=== PATIENT | male | born 1955 | race Caucasian/White ===

== ENCOUNTER 2020-04-26 15:42 | Emergency (ER) | payer OTHER ==
[2020-04-26 15:51] VITALS: TEMP 98.4
--- NOTE | 2020-04-26 16:11 | ED ---
General Adult HPI - General Chief complaint: Dizziness Stated complaint: Lightheaded,Dizziness Time Seen by Provider: 04/26/20 16:00 Source: patient Mode of arrival: ambulatory Limitations: no limitations - History of Present Illness Initial comments: Dictation was produced using [employer] dictation software. please excuse any grammatical, word or spelling errors. This patient was cared for during a federal and state declared state of emergency secondary to Covid 19 Chief Complaint: 64-year-old male presents with dizziness History of Present Illness: Is 64-year-old male he is, in by his family member. Patient states that he had 2 such episodes where he get dizzy and feeling faint. He adamantly reports that this only happens whenever there is mention of gross topics or gross situations. He was diagnosed doctor about a pad surgery when they started talking about things that patient found relatively discussing. He then felt a little faint and fell member at bedside reports that he lost all his color. Sat found her after several seconds he went back to baseline. Patient denies any other issues. He denies any chest pain shortness of breath. He does not have any orthostasis. Strongly feels that he does not need to be here. Family member made him come to be evaluated. The ROS documented in this emergency department record has been reviewed and confirmed by me. Those systems with pertinent positive or negative responses have been documented in the HPI. All other systems are other negative and/or noncontributory. PHYSICAL EXAM: General Impression: Alert and oriented x3, not in acute distress HEENT: Normocephalic atraumatic, extra-ocular movements intact, pupils equal and reactive to light bilaterally, mucous membranes moist, no carotid bruit Cardiovascular: Heart regular rate and rhythm Chest: Able to complete full sentences, no retractions, no tachypnea Abdomen: abdomen soft, non-tender, non-distended, no organomegaly Musculoskeletal: Pulses present and equal in all extremities, no peripheral fercho ma Motor: no focal deficits noted Neurological: CN II-XII grossly intact, no focal motor or sensory deficits noted Skin: Intact with no visualized rashes Psych: Normal affect and mood ED course: 64-year-old presents with episodes of dizziness. Patient this allegedly occurs only whenever things that gross him out are discussed. He has no other complaints at this time. He feels at baseline currently. EKG is unremarkable. Laboratory evaluation is unremarkable. Patient will be discharge. Told to follow up with primary care physician for outpatient workup. EKG interpretation: Ventricular rate 72, normal sinus rhythm,. 184, incomplete right bundle branch block, QRS 110, QTc 47. No MS prolongation, no QTC prolongation, T-wave inversion in lead 3. No old EKG for comparison Overall, this EKG is nonspecific - Related Data Allergies Allergy/AdvReac Type Severity Reaction Status Date / Time No Known Allergies Allergy Verified 04/26/20 15:51 Review of Systems ROS Statement: Those systems with pertinent positive or pertinent negative responses have been documented in the HPI. ROS Other: All systems not noted in ROS Statement are negative. Past Medical History Past Medical History: Hyperlipidemia History of Any Multi-Drug Resistant Organisms: None Reported Past Surgical History: Orthopedic Surgery, Tonsillectomy Past Psychological History: No Psychological Hx Reported Smoking Status: Vaper Past Alcohol Use History: Occasional Past Drug Use History: None Reported General Exam Limitations: no limitations Course Vital Signs 04/26/20 15:45 Temperature 98.4 F Pulse Rate 70 Respiratory 18 Rate Blood Pressure 116/74 O2 Sat by Pulse 100 Oximetry Medical Decision Making - Lab Data Result diagrams: 04/26/20 16:14 04/26/20 16:14 Lab Results 04/26/20 04/26/20 04/26/20 Range/Units 16:14 16:14 16:14 WBC 10.5 (3.8-10.6) k/uL RBC 5.33 (4.30-5.90) m/uL Hgb 16.2 (13.0-17.5) gm/dL Hct 47.8 (39.0-53.0) % MCV 89.7 (80.0-100.0) fL MCH 30.4 (25.0-35.0) pg MCHC 33.9 (31.0-37.0) g/dL RDW 12.7 (11.5-15.5) % Plt Count 408 (150-450) k/uL MPV 6.6 Neutrophils % 71 % Lymphocytes % 15 % Monocytes % 7 % Eosinophils % 3 % Basophils % 1 % Neutrophils # 7.5 (1.3-7.7) k/uL Lymphocytes # 1.6 (1.0-4.8) k/uL Monocytes # 0.8 (0-1.0) k/uL Eosinophils # 0.3 (0-0.7) k/uL Basophils # 0.1 (0-0.2) k/uL Sodium 139 (137-145) mmol/L Potassium 4.3 (3.5-5.1) mmol/L Chloride 103 (98-107) mmol/L Carbon Dioxide 28 (22-30) mmol/L Anion Gap 8 mmol/L BUN 17 (9-20) mg/dL Creatinine 1.07 (0.66-1.25) mg/dL Est GFR (CKD-EPI)AfAm 86 (>60 ml/min/1.73 sqM) Est GFR (CKD-EPI)NonAf 74 (>60 ml/min/1.73 sqM) Glucose 93 (74-99) mg/dL Calcium 10.1 (8.4-10.2) mg/dL Magnesium 2.1 (1.6-2.3) mg/dL Troponin I <0.012 (0.000-0.034) ng/mL Disposition Clinical Impression: Pre-syncope Disposition: HOME SELF-CARE Condition: Good Instructions (If sedation given, give patient instructions): Dizziness (ED) Is patient prescribed a controlled substance at d/c from ED?: No Referrals: Arnoldo Hitchcock III, MD [Primary Care Provider] - 1-2 days Time of Disposition: 17:00
[2020-04-26 16:22] LABS: Basophils # (A) 0.1 k/uL (0-0.2); Basophils % (A) 1 %; Eosinophils # (A) 0.3 k/uL (0-0.7); Eosinophils % (A) 3 %; HCT 47.8 % (39.0-53.0); HGB 16.2 gm/dL (13.0-17.5); Lymphocytes # (A) 1.6 k/uL (1.0-4.8); Lymphocytes % (A) 15 %; MCH 30.4 pg (25.0-35.0); MCHC 33.9 g/dL (31.0-37.0); MCV 89.7 fL (80.0-100.0); Mean Platelet Volume 6.6; Monocytes # (A) 0.8 k/uL (0-1.0); Monocytes % (A) 7 %; Neutrophils # (A) 7.5 k/uL (1.3-7.7); Neutrophils % (A) 71 %; Platelet Count 408 k/uL (150-450); RBC 5.33 m/uL (4.30-5.90); RDW 12.7 % (11.5-15.5); WBC 10.5 k/uL (3.8-10.6)
[2020-04-26 16:33] LABS: Calcium 10.1 mg/dL (8.4-10.2); Magnesium 2.1 mg/dL (1.6-2.3); Potassium 4.3 mmol/L (3.5-5.1)
[2020-04-26 17:19] VITALS: BP 115/72; PULSE 71; RESP 17
== END 2020-04-26 17:22 | disposition home or self-care (01) ==
LOC: EC 15:42
DX: R55 Syncope and collapse (principal); I45.10 Unspecified right bundle-branch block; R42 Dizziness and giddiness; F17.290 Nicotine dependence, other tobacco product, uncomplicated
CPT/HCPCS: 36415; 80048; 83735; 84484; 85025; 93005; 99284